=== PATIENT | female | born 1945 | race Hispanic/Latino ===

== ENCOUNTER 2016-07-08 10:32 | Outpatient (CLI) | payer MEDICARE ==
--- NOTE | 2016-07-08 11:12 | Mammography Report ---
Bilateral digital screening mammogram with CAD. Comparison is made to study on January 25, 2014. Findings: There is a new mass in the right breast at the 11:00 position, 4 cm from the nipple. On the MLO projection, there appears to be architectural distortion. There is intermediate density of the breast parenchyma bilaterally. An ill-defined left parenchymal asymmetry in the upper-outer quadrant of the left breast is stable and demonstrates benign features. Impression: New right breast mass with possible architectural distortion. BI-RADS code: 0. Recommendation: Spot compression images, 90 degree view, and ultrasound.
== END 2016-07-08 10:33 | disposition home or self-care (01) ==
LOC: MAMMO 10:32
PROVIDERS: ATTEND Internal Medicine
DX: Z12.31 Encounter for screening mammogram for malignant neoplasm of breast (principal)
CPT/HCPCS: 77067; G0202

== ENCOUNTER 2016-07-14 13:27 | Outpatient (CLI) | payer MEDICARE ==
--- NOTE | 2016-07-14 14:46 | Ultrasound Report ---
RIGHT DIGITAL DIAGNOSTIC MAMMOGRAM and RIGHT BREAST ULTRASOUND: 07/14/16 13:27:00 CLINICAL: Recalled for asymmetry. COMPARISON:07/08/16 screening FINDINGS: ML and spot compression MLO and CC views were performed and demonstrated persistent oval circumscribed mass in the upper outer quadrant. Ultrasound of the upper-outer right breast was performed and demonstrated a solid oval hypoechoic mass at 11 o'clock 3 cm from the nipple. It has a mildly irregular margin and measures 7 x 7 x 5 mm. It demonstrates mild shadowing. IMPRESSION: A solid 7 mm right breast mass at 11 o'clock. BI-RADS CATEGORY: 4--Suspicious RECOMMENDATION: Ultrasound guided needle core biopsy of the right breast. I discussed the findings and the recommendation for needle core biopsy with the patient at the time of the examination. ACR BI-RADS MAMMOGRAPHIC CODES: 0 = Needs additional imaging evaluation; 1 = Negative; 2 = Benign; 3 = Probably benign; 4 = Suspicious; 5 = Malignant; 6 = Known biopsy-proven malignancy COMMENT: 1. Dense breast tissue, i.e., adenosis, fibrocystic changes, etc., may obscure an underlying neoplasm. 2. Approximately 10% of cancers are not detected with mammography. 3. A negative mammography report should not delay biopsy if a clinically suspicious mass is present. COMMENT: Patient follow-up letters are generated via our [employer] application.
== END 2016-07-14 13:28 | disposition home or self-care (01) ==
LOC: SPVWC 13:27
PROVIDERS: ATTEND Internal Medicine
DX: N63 Unspecified lump in breast (principal)
CPT/HCPCS: 76642; G0206

== ENCOUNTER 2016-07-22 08:10 | Outpatient (CLI) | payer MEDICARE ==
--- NOTE | 2016-07-22 10:21 | Ultrasound Report ---
Ultrasound guided right breast biopsy, marker placement, right mammogram: The patient presents with lesion in the 11:00 position approximately 3 cm from the nipple. A lateral approach was utilized. The skin was cleansed with Betadine and 1% lidocaine used for local anesthesia. A 13-gauge sheath was introduced through which multiple biopsies were obtained using a 14-gauge disposable Bard biopsy spring-loaded gun. A marker was left in place and ultrasound guidance. Mild compression was obtained after the seizure with placement of a water seal bandage over the entrance site. No complication encountered. A two-view mammogram confirmed positioning of the marker in the targeted lesion. The patient was given followup instructions prior to discharge.
--- NOTE | 2016-07-22 10:25 | History and Physical Report ---
History of Present Illness Date of examination: 07/22/16 Chief complaint: mammo lesion Medications and Allergies Allergies Allergy/AdvReac Type Severity Reaction Status Date / Time Cephalosporins AdvReac Anaphylaxis Unverified 01/25/14 11:07 Penicillins AdvReac Anaphylaxis Unverified 01/25/14 11:07
--- NOTE | 2016-07-22 10:26 | Procedure Note ---
Date of procedure: 07/22/16 Pre-op diagnosis: rt. breast lesion Post-op diagnosis: same Procedure: bx Findings: solid tissue Anesthesia: local Surgeon: AME NOEL Estimated blood loss: none Pathology: list (rt breast tissue) Specimen disposition: to lab Condition: stable Disposition: same day
== END 2016-07-22 08:11 | disposition home or self-care (01) ==
LOC: SPVWC 08:10
PROVIDERS: ATTEND Internal Medicine
DX: N63 Unspecified lump in breast (principal)
CPT/HCPCS: 19083; 88305; 88342; 88361; A4648; G0206